=== PATIENT | male | born 1945 | race Caucasian/White ===

== ENCOUNTER 2016-11-28 02:04 | Emergency (ER) | payer MEDICARE ==
[~2016-11-28] VITALS: Ht 172.7 cm; Wt 65.8 kg
[~2016-11-28 02:04] MED LIST: BETH25TA GT; HYDR-3730 PO; NAPR-689 PO; SULF-222 PO
--- OUTSIDE RECORDS SUMMARY | 2016-11-28 02:10 | XMS REPORT | Continuity of Care Document ---
Author Author [facility] Organization [facility] Address Unknown Phone Unavailable Care Team Providers Care [employer] Boat [employer] Supervisor Name Role Phone PCP Unavailable Source Comments Some departments are not documenting in the electronic medical record. If you do not see the information that you expected, contact Release of Information in the Health Information Management department at [phone] for further assistance in locating additional records.[facility] Active Allergies and Adverse Reactions Not on File Current Medications Not on file Active Problems Not on file Social History Tobacco Use Types Packs/Day Years Used Date Never Assessed Plan of Care Health Maintenance Due Date Last Done Comments Hepatitis C Screening 1945 Physical (Comprehensive) 1953 Exam Pertussis Vaccine 1957 Tetanus Vaccine 1963 Colorectal Cancer 1996 Screening Shingles Vaccine 2006 Prevnar/Pneumovax (#1) 2011 Influenza Vaccine 07/29/2016 Results from Last 3 Months Not on file
[2016-11-28 02:31] LABS: BILIRUBIN,URINE NEGATIVE (NEGATIVE); KETONES,URINE 1+ (NEGATIVE); LEUKOCYTE ESTERASE ,URINE 2+ (NEGATIVE); NITRITE,URINE NEGATIVE (NEGATIVE); PH,URINE 7 (5-9); PROTEIN,URINE 3+ (NEGATIVE); UROBILINOGEN,URINE NORMAL (NORMAL)
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
[2016-11-28] MEDS ORDERED: NITR-65 PO (02:53)
[2016-11-28] MEDS ORDERED: NITROFURANTOIN 100 MG (MACROBID) CAPSULE PO ONE (03:00)
[2016-11-28] MEDS ORDERED: NITROFURANTOIN 50 MG (MACRODANTIN) CAP PO ONE (03:00)
[2016-11-28 03:15] VITALS: BP 125/74
== END 2016-11-28 03:15 | disposition home or self-care (01) ==
LOC: EDUNIT# 02:04 → ER 02:06
DX: T83.098A Other mechanical complication of other urinary catheter, initial encounter (principal); R31.9 Hematuria, unspecified; C61 Malignant neoplasm of prostate
CPT/HCPCS: 81000; 87088; 99283

== ENCOUNTER 2017-12-08 12:49 | Outpatient (RCR) | payer OTHER ==
[~2017-12-08 12:49] MED LIST changes: +NITR-65 PO
== END 2017-12-19 13:09 | disposition home or self-care (01) ==
PROVIDERS: ATTEND Family Medicine
DX: R26.9 Unspecified abnormalities of gait and mobility (principal)

== ENCOUNTER → 2017-12-15 | Outpatient (CLI) | payer MEDICARE ==
--- NOTE | 2017-12-15 09:48 | Diagnostic Imaging Report ---
INDICATION: Right groin pain TECHNIQUE: Real-time grayscale sonographic imaging and color vascular evaluation of both testicles was performed. CORRELATION STUDY: None FINDINGS: RIGHT testicle measures 3.8 x 2.7 x 2.6 cm. LEFT testicle measures 4.3 x 1.5 x 2.4 cm. The testicles appear normal in echogenicity. No focal testicular mass demonstrated. There is vascular flow to the testicles. There is a rather simple appearing epididymal head cyst on the left at 6 mm in size. Moderate right-sided hydrocele. Imaging of the soft tissues of the inguinal region demonstrates no definitive hernia defect. IMPRESSION: 1. Moderate right-sided hydrocele. Otherwise unremarkable scrotal ultrasound evaluation. Dictated by: Dictated on workstation # [id number]
== END ==
LOC: RAD 08:33
PROVIDERS: ATTEND Nurse Practitioner Family
DX: N43.3 Hydrocele, unspecified (principal)
CPT/HCPCS: 76870

== ENCOUNTER 2020-10-06 09:59 | Outpatient (RCR) | payer MEDICARE | END 2020-12-01 15:44 | disposition home or self-care (01) | PROVIDERS: ATTEND Urology | DX: C61 Malignant neoplasm of prostate (principal) ==

== ENCOUNTER 2022-10-16 15:43 | Emergency (ER) | payer MEDICARE, OTHER ==
[~2022-10-16] VITALS: Ht 172.7 cm; Wt 65.7 kg
[2022-10-16 15:49] VITALS: BP 124/70
--- NOTE | 2022-10-16 16:08 | ED Abdominal Pain ---
General Chief Complaint: Abdominal/GI Problems Stated Complaint: LOWER RIGHT ABD PAIN Source of Information: Patient Exam Limitations: No Limitations History of Present Illness Date Seen by Provider: Oct 16, 2022 Time Seen by Provider: 15:50 Initial Comments Patient is a 77-year-old male who presents to the emergency room with a concern for right lower quadrant hernia. He has had previous inguinal hernia repair by Dr. JEAN. He states over the last week or so he has noted a small "bulge" in his right lower quadrant. He denies any significant pain. He occasionally feels a "twinge" when he moves around. He is not nauseous or vomiting. He has a normal appetite. Normal bowel movements. No urinary difficulties but does self caths routinely secondary to chronic bladder problems. No fevers or chills. No leg pain, numbness weakness or tingling. No back pain. [facility] that he should probably come to the emergency room and "have it looked at". He is asymptomatic completely. Exam is pertinent for a slight protuberance in the right lower quadrant consistent with ventral abdominal hernia of the right lower quadrant. No overlying erythema. Nontender. Soft and reducible. No discrete violation of the peritoneum is felt through which to reduce the hernia. All other review of systems reviewed and negative except as stated. Timing/Duration: 1 Week Severity/Quality: Mild Location: RLQ Radiation: No Radiation Associated Symptoms: Denies Symptoms Allergies and Home Medications Allergies Coded Allergies: No Known Drug Allergies (Unverified , 10/04/14) Patient Home Medication List Home Medication List Reviewed: Yes Nitrofurantoin Monohyd/M-Cryst (Macrobid 100 mg Capsule) 100 Mg Capsule, 1 TAB PO BID Prescribed by: ROBBI REAL on 11/28/16 0253 Sulfamethoxazole/Trimethoprim (Sulfamethoxazole-Tmp Ds Tablet) 1 Each Tablet, 1 TAB PO UD, (Reported) Entered as Reported by: FRANCA RODRIGUES on 08/08/16 1968 Review of Systems Review of Systems Constitutional: no symptoms reported, see HPI EENTM: No Symptoms Reported Respiratory: No Symptoms Reported Cardiovascular: No Symptoms Reported Gastrointestinal: Other (swollen area right LQ) Genitourinary: No Symptoms Reported Musculoskeletal: no symptoms reported Skin: no symptoms reported Psychiatric/Neurological: No Symptoms Reported All Other Systems Reviewed Negative Unless Noted: Yes Past Ionzpux-Rplkfa-Mwfksf Hx Patient Social History Tobacco Use?: No Use of E-Cig and/or Vaping dev: No Substance use?: No Alcohol Use?: No Pt feels they are or have been: No Seasonal Allergies Seasonal Allergies: Yes Past Medical History Reproductive Disorders: Yes (prostate cancer, urinary obstruction) Prostate Problems Arthritis Prostate Anxiety, PTSD Adverse Reaction/Blood Tranf: No Physical Exam Vital Signs Capillary Refill : Height/Weight/BMI Height: 5'8" Weight: 145lbs. oz. 65.942972sb; BMI Method:Stated General Appearance: WD/WN, no apparent distress Respiratory: no respiratory distress, no accessory muscle use Cardiovascular: regular rate, rhythm Gastrointestinal: normal bowel sounds, non tender, soft, other (small amount of swelling RLQ in the anterior abdominal wall. Soft and NT. BS are positive. No discrete defect felt in the abdominal wall. femoral pulses intact bilaterally. 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 Exam is consistent with direct abdominal hernia in the right lower quadrant. The area is soft and reducible. No overlying erythema. Nontender to palpation. Femoral pulses are intact. His vital signs are stable. He is completely asymptomatic. Recommended that the patient follow-up with Dr. JEAN who is done an inguinal hernia repair on him in the past. No clinical or objective findings to warrant basic laboratory studies or urgent ultrasound/CT. Consideration given to bowel obstruction, acute appendicitis, cellulitis, incarcerated hernia. Physical exam nonconcerning for any of these in the differential I will schedule him for an ultrasound of the area for the beginning of the week. Patient is given return precautions. He verbalized understanding. All questions are sought and answered. Patient is stable for discharge Departure Impression Primary Impression: Hernia of anterior abdominal wall Disposition: 01 HOME, SELF-CARE Condition: Stable Departure-Patient Inst. Decision time for Depature: 16:07 Referrals: BINH HEWITT MD (PCP) Primary Care Physician LEANNA JEAN MD Patient Instructions: Abdominal Hernia (DC) Add. Discharge Instructions: Avoid any lifting over 15 pounds. Try not to strain with bowel movements. Take stool softeners daily so that you do not strain. Please call Dr. JEAN's office on Tuesday for a follow-up appointment after your ultrasound is completed. If you develop severe abdominal pain especially with nausea and vomiting, blood in your stools or fever please return to the emergency department for reevaluation. Copy Copies To 1: LEANNA JEAN MD, KATHRYN M MD Oct 16, 2022 16:08
== END 2022-10-16 16:23 | disposition home or self-care (01) ==
LOC: EDUNIT# 15:43 → ER 15:45
DX: K43.9 Ventral hernia without obstruction or gangrene (principal); Z98.890 Other specified postprocedural states
CPT/HCPCS: 99281

== ENCOUNTER → 2022-10-18 | Outpatient (CLI) | payer MEDICARE ==
--- NOTE | 2022-10-18 09:52 | Diagnostic Imaging Report ---
INDICATION: Right lower quadrant abdominal pain. History of previous right inguinal hernia repair. TECHNIQUE: Multiple Real-time grayscale sonographic images of the abdomen. CORRELATION STUDY: None. FINDINGS: LIVER: Normal echotexture within the visualized portions of the liver. There is normal, hepatopetal direction of flow within the main portal vein. Liver length is 16.5 cm. GALLBLADDER: No shadowing gallstones or pericholecystic fluid. COMMON BILE DUCT: Nondilated at 0.5 cm. PANCREAS: Limited in visualization. The visualized portions appearing unremarkable. SPLEEN: Unremarkable at 9.3 x 3.6 x 4.5 cm. ABDOMINAL AORTA: Unremarkable. INFERIOR VENA CAVA: Limited in visualization. RIGHT KIDNEY: 11.1 x 5.0 x 4.9 cm. Unremarkable. LEFT KIDNEY: 11.1 x 4.8 x 5.2 cm. Unremarkable. OTHER: No significant abdominal ascites. Imaging of the right inguinal region demonstrates a contour deformity which does become more prominent with Valsalva. Additionally, there is suggestion of some peristalsis, concerning for hernia. This region measures approximately 5.2 x 4.9 x 3.5 cm. IMPRESSION: 1. Imaging of the right inguinal region raises concern for potential hernia defect which may include bowel. If further imaging evaluation is desired, CT imaging would be recommended. 2. The remainder of the abdominal ultrasound study is otherwise unremarkable. Dictated by: Dictated on workstation # [id number]
== END ==
LOC: RAD 09:00
PROVIDERS: ATTEND Emergency Medicine
DX: R10.31 Right lower quadrant pain (principal); Z98.890 Other specified postprocedural states
CPT/HCPCS: 76700

== ENCOUNTER 2023-03-11 05:41 | Outpatient (CLI) | payer MEDICARE ==
[~2023-03-11] VITALS: Ht 172.7 cm; Wt 69.1 kg
[2023-03-11] MEDS ORDERED: [UNRECOGNIZED DRUG - OTHER] PO (12:20)
[2023-03-11] MEDS ORDERED: LECI400C PO (12:20)
[2023-03-11] MEDS ORDERED: CYAN250014 PO (12:20)
[2023-03-11] MEDS ORDERED: ASHW300C2 PO (12:20)
[2023-03-11] MEDS ORDERED: ZINC50TA61 PO (12:20)
[2023-03-11] MEDS ORDERED: GELA600C5 PO (12:20)
[2023-03-11] MEDS ORDERED: BEET ROOT PO (12:20)
[2023-03-11] MEDS ORDERED: LUTE20CA2 PO (12:20)
[2023-03-11] MEDS ORDERED: LACT-242 PO (12:20)
[2023-03-11] MEDS ORDERED: CRAN500T4 PO (12:20)
[2023-03-11] MEDS ORDERED: MULT-1104 PO (12:20)
[2023-03-11] MEDS ORDERED: ACAI500C9 PO (12:20)
[2023-03-11] MEDS ORDERED: GINK120C PO (12:20)
[2023-03-11] MEDS ORDERED: [UNRECOGNIZED DRUG - CODE] PO (12:20)
[2023-03-11] MEDS ORDERED: IRON18TA PO (12:20)
[2023-03-11] MEDS ORDERED: SIME125T50 PO (12:20)
[2023-03-11] MEDS ORDERED: HORSE TAIL PO (12:20)
[2023-03-11] MEDS ORDERED: [UNRECOGNIZED DRUG - CODE] PO (12:20)
[2023-03-11] MEDS ORDERED: CHOL125C7 PO (12:20)
[2023-03-11] MEDS ORDERED: NAPR500T8 PO (12:20)
[2023-03-11] MEDS ORDERED: GLUC1TAB29 PO (12:20)
[2023-03-11] MEDS ORDERED: CALC1CAP9 PO (12:20)
[2023-03-11] MEDS ORDERED: OXYB10TA6 PO (12:20)
== END 2023-03-11 12:51 | disposition home or self-care (01) ==
LOC: PREOP 05:41
PROVIDERS: ATTEND Surgery
DX: Z01.818 Encounter for other preprocedural examination (principal)

== ENCOUNTER 2023-03-17 09:48 | Day surgery (SDC) | payer MEDICARE, OTHER ==
--- NOTE | 2023-03-10 08:06 | HISTORY AND PHYSICAL ---
DATE OF SERVICE: 03/17/2023 HISTORY OF PRESENT ILLNESS: The patient is a 77-year-old male known to us. We had initially seen him in September 2014 for right inguinal hernia and underwent laparoscopic repair on 10/11. He was then seen 10/19 and stated that he felt a small bulge in the right inguinal region and he wanted to medically manage that one. He was seen more recently due to the increased pain and swelling in the right inguinal region. He was again seen and was found to have a reducible right inguinal hernia, which was tender to palpation. He is otherwise eating well and having normal bowel movements. PAST MEDICAL HISTORY: History of prostate cancer, urinary incontinence, degenerative joint disease. PAST SURGERIES: Laparoscopic right inguinal hernia repair 2013, left femur ORIF 1966, suprapubic catheter placement 07/2017. Transurethral resection of prostate. ALLERGIES: NO KNOWN DRUG ALLERGIES. MEDICATIONS: Naproxen p.r.n. SOCIAL HISTORY: Previous smoke, quit in 1989, 20 pack years, negative alcohol. FAMILY HISTORY: Father with history of lung cancer. VITAL SIGNS: Currently 152 pounds, blood pressure 110/60 at 5 feet 8 inches. REVIEW OF SYSTEMS: A well-nourished male in no acute distress. He is not experiencing shortness of breath or difficulty breathing. No chest pain, palpitations, diaphoresis. No nausea or vomiting. No diarrhea or constipation. No fever, chills, no recent inadvertent weight loss. All other review of systems negative. PHYSICAL EXAMINATION: CHEST: Clear. Good breath sounds bilaterally. HEART: Regular. No murmurs. EXTREMITIES: No lower extremity edema. Negative Homans sign. HEENT: No scleral icterus. No cervical lymphadenopathy. ABDOMEN: Soft, nondistended. There is pain in the right inguinal region upon deep palpation, consistent with right recurrent inguinal hernia. SKIN: Warm, dry. ASSESSMENT AND PLAN: A 77-year-old male with recurrent right inguinal hernia. The natural history of hernias were explained to the patient including the risk of incarceration and strangulation and he is in full understanding of this and would like to proceed with laparoscopic recurrent right inguinal hernia repair with mesh, which we will schedule. Job ID: [id number] DocumentID: [id number] Dictated Date: 03/08/2023 15:10:16 Retail Management Keyholder Date: 03/08/2023 16:09:00 Dictated By: LEANNA JEAN MD
[2023-03-17] VITALS (10 sets, daily range): BP systolic 113–126; BP diastolic 56–90
[~2023-03-17] VITALS: Ht 172.7 cm; Wt 69.1 kg
[~2023-03-17 09:48] MED LIST changes: +ACAI500C9 PO; +ASHW300C2 PO; +BEET ROOT PO; +CALC1CAP9 PO; +CHOL125C7 PO; +CRAN500T4 PO; +CYAN250014 PO; +GELA600C5 PO; +GINK120C PO; +GLUC1TAB29 PO; +HORSE TAIL PO; +IRON18TA PO; +LACT-242 PO; +LECI400C PO; +LUTE20CA2 PO; +MULT-1104 PO; +NAPR500T8 PO; +OXYB10TA6 PO; +SIME125T50 PO; +ZINC50TA61 PO; +[UNRECOGNIZED DRUG - CODE] PO; +[UNRECOGNIZED DRUG - CODE] PO; +[UNRECOGNIZED DRUG - OTHER] PO
--- NOTE | 2023-03-17 10:09 | Progress Note-Pre Operative ---
Pre-Operative Progress Note Date H&P Reviewed: Mar 17, 2023 Time H&P Reviewed: 10:05 History & Physical: H&P Reviewed, Patient Examed, No changes noted Pre-Operative Diagnosis: Recurrent Right inguinal hernia JOSIANE HODGSON BIOPSYCHOLOGIST Mar 17, 2023 10:09
[2023-03-17] MEDS ORDERED: HYDR-3817 PO (10:10)
--- NOTE | 2023-03-17 10:11 | Discharge Inst-Surgical ---
D/C Lap Instructions-KIDO Reconcile Patient Problems Problems Reviewed?: Yes New, Converted, or Re-Newed RX: Other Follow Up Appt in 2 weeks Activity as tolerated No driving for 24 hours No driving while on pain medications Incentive Spirometry use every 2 hours while awake Regular Diet Symptoms to Report: Fever over 101 degree F, Nausea/Vomiting Infection Signs and Symptoms to report: Increased redness, Foul odor of wound, Increased drainage Bathing instructions: May shower Operative Area Clean/Dry; Keep incision clean/dry If any problems/questions: Contact your physician or go to Emergency Room JOSIANE HODGSON UTILITY TECHNICIAN Mar 17, 2023 10:11
[2023-03-17] MEDS ORDERED: HYDROcodone/APAP 5 MG/325 MG (LORTAB) TAB PO ONE (10:15)
[2023-03-17] MEDS ORDERED: morphine INJ 10 MG/ML 1ML (SYR OR VIAL) IVP PRN (10:15)
[2023-03-17] MEDS ORDERED: LACTATED RINGERS 1,000 ML IV PRN (10:15)
[2023-03-17] MEDS ORDERED: ONDANSETRON 4 MG/2 ML (SDV) Z0FRAN IVP PRN ×2 (10:15→12:15)
[2023-03-17] MEDS ORDERED: ceFAZolin INJECTION 2,000 MG in NS (IVPB) 50 ML IV ONE (10:15)
[2023-03-17] MEDS ORDERED: ACETAMINOPHEN 325 MG TABLET PO PRN (10:15)
[2023-03-17] MEDS ORDERED: ONDANSETRON 4 MG/2 ML (SDV) Z0FRAN ONE (10:16)
[2023-03-17] MEDS ORDERED: GLYCOPYRROLATE 0.2 MG/ML (ROBINUL) 2 ML VIAL ONE (10:16)
[2023-03-17] MEDS ORDERED: NEOSTIGMINE (BLOXIVERZ ) 1 MG/1ML 10 ML VIAL ONE (10:16)
[2023-03-17] MEDS ORDERED: fentaNYL INJ 100 MCG/2 ML AMP ONE (10:16)
[2023-03-17] MEDS ORDERED: LIDOCAINE PF 2% 5 ML (XYLOCAINE) VIAL ONE (10:16)
[2023-03-17] MEDS ORDERED: ROCURONIUM 50 MG/5 ML (ZEMURON) VIAL IV ONE (10:16)
[2023-03-17] MEDS ORDERED: proPOfol 200 MG/20 ML (DIPRIVAN) VIAL IV ONE (10:16)
[2023-03-17] MEDS ORDERED: BUP/EPI 0.5% 1:200,000 (SENSORCAINE) 30 ML VIAL ONE (10:38)
[2023-03-17] MEDS ORDERED: SEVOFLURANE (ULTANE) 15 ML INHAL SOLN ONE (11:54)
--- NOTE | 2023-03-17 12:00 | Progress Note-Post Operative ---
Post-Operative Progess Note Surgeon (s)/Sow Farm Manager (s) Surgeon LEANNA JEAN MD Sow Farm Manager: juju SMITH Pre-Operative Diagnosis Recurrent Right inguinal hernia Post-Operative Diagnosis same, direct ing hernia Procedure & Operative Findings Date of Procedure 03/17/23 Procedure Performed/Findings laparoscopic right recurrent ingunal hernia repair with mesh. Anesthesia Type get Estimated Blood Loss Estimated blood loss (mL): minimal Specimens/Packing Specimens Removed none LEANNA JEAN MD Mar 17, 2023 12:00
[2023-03-17] MEDS ORDERED: morphine INJ 10 MG/ML 1ML (SYR OR VIAL) IVP ONE (12:15)
--- NOTE | 2023-03-17 14:16 | Anesthesia-General Post-Op ---
General Patient Condition Mental Status/LOC: Same as Preop Cardiovascular: Satisfactory Nausea/Vomiting: Absent Respiratory: Satisfactory Pain: Controlled Complications: Absent Post Op Complications Complications None Follow Up Care/Instructions Patient Instructions None needed. Anesthesia/Patient Condition Patient Condition Patient is doing well, no complaints, stable vital signs, no apparent adverse anesthesia problems. No complications reported per nursing. SHRUTI HUGGINS CRNA Mar 17, 2023 14:16
--- NOTE | 2023-03-17 20:21 | OPERATIVE REPORT ---
DATE OF SERVICE: 03/17/2023 ATTENDING PRIMARY CARE PHYSICIAN: Dr. Regan Potts. PREOPERATIVE DIAGNOSIS: Recurrent reducible right inguinal hernia. POSTOPERATIVE DIAGNOSIS: Reducible right direct inguinal hernia. PROCEDURE: Laparoscopic repair of right recurrent inguinal hernia with mesh. SURGEON: Leanna Jean MD CHAIRMAN AND CEO: Jaiden Pandey APRN ANESTHESIA: General endotracheal. ESTIMATED BLOOD LOSS: Minimal. FINDINGS: Reducible right direct inguinal hernia. DISPOSITION: The patient tolerated the procedure well. INDICATIONS: The patient is a 77-year-old male known to us. We had initially seen him in September 2014 for a right inguinal hernia, which was symptomatic and underwent a laparoscopic repair 09/2014. He was then seen on 09/2022 and stated that he felt a small bulge within the inguinal region; however, he stated that this was not too symptomatic and wanted to medically manage the hernia. He was seen more recently due to increased pain and swelling of the right inguinal region. Again, he was found to have recurrent reducible right inguinal hernia. He is otherwise doing well, tolerating a regular diet and having normal bowel movements. DESCRIPTION OF PROCEDURE: The patient was brought to the operating room, laid supine on the table. After adequate IV pain and sedative medications and general endotracheal intubation, the abdomen was prepped and draped in standard surgical fashion. A 0.5% Marcaine with epinephrine was then used to anesthetize the overlying skin in the infraumbilical region. A crescent-shaped skin incision was then made using a #15 blade. The fascia was then dissected using a hemostat. The abdominal wall was then retracted anteriorly and a Veress needle inserted with a low opening pressure of 0 mmHg. The abdomen was then insufflated to 15 mmHg pressure. The Veress needle removed and a 10 mm trocar placed followed by a 10 mm 45-degree angle laparoscope visualized the peritoneal cavity. A 4-quadrant abdominal exploration was performed. There was a recurrent right direct inguinal hernia. There appeared to be a small left direct inguinal hernia component as well. However, this was not symptomatic. The remainder of the small bowel and colon appeared normal. Under direct visualization, we then proceeded to place bilateral 5 mm ports under direct visualization after the skin and peritoneal lining were anesthetized using 0.5% Marcaine with epinephrine and transverse skin incision was made using a #15 blade. The patient was then placed in a Trendelenburg position. We then proceeded to dissect the peritoneal lining next to the previous mesh using blunt dissection as well as the Sonicision. We proceeded medially until Jeison's ligament was reached as well as went medially beyond to encompass to dissect out the entirety of the direct inguinal hernia component. We then proceeded with inferior dissection where the previous mesh was then tacked with visualization of good hemostasis. Good hemostasis was observed. A medium size 3DMax polypropylene mesh was then placed into the defect and then tacked to Jeison's ligament medially and to the inguinal ligament laterally. The medial portion covered the direct inguinal hernia component. The peritoneal lining was then placed over the mesh and a few absorbable tacks placed to hold this in place with visualization of good hemostasis. Good hemostasis was observed. The 10 mm port site fascia and peritoneum were then closed under direct visualization using a Eugenio-Max device and 0 Vicryl suture. The abdomen was desufflated and the remaining ports removed. All skin incisions were closed using 4-0 Monocryl running subcuticular sutures. Wounds were then cleaned and covered with Dermabond. The patient tolerated the procedure well. We will start IV normal pain medication as well as a clear liquid diet. Once he is tolerating clears, has good pain control with oral pain medications, ambulating well, we will discharge him home where he will be instructed to do no heavy lifting or exertion for the next 6 weeks. Job ID: [id number] DocumentID: [id number] Dictated Date: 03/17/2023 13:10:57 Visual Associate Date: 03/17/2023 20:19:00 Dictated By: LEANNA JEAN MD
== END 2023-03-17 14:12 | disposition home or self-care (01) ==
LOC: SDC 09:48
PROVIDERS: ATTEND Surgery
DX: K40.91 Unilateral inguinal hernia, without obstruction or gangrene, recurrent (principal); Z87.891 Personal history of nicotine dependence
CPT/HCPCS: 87081

== ENCOUNTER 2023-03-19 10:15 | Emergency (ER) | payer OTHER ==
[~2023-03-19 10:15] MED LIST changes: +HYDR-3817 PO
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
[2023-03-19] MEDS ORDERED: METO5TAB75 PO (11:22)
[2023-03-19] MEDS ORDERED: ONDANSETRON 4 MG (ZOFRAN) ORAL DISSOLVE TAB PO ONE (11:30)
[2023-03-19] MEDS ORDERED: METOCLOPRAMIDE INJ 10 MG/2 ML (REGLAN) IM ONE (11:30)
[2023-03-19 11:34] VITALS: BP 129/81
== END 2023-03-19 11:48 | disposition home or self-care (01) ==
LOC: EDUNIT# 10:15 → ER 10:19
DX: K59.00 Constipation, unspecified (principal); Z98.890 Other specified postprocedural states
CPT/HCPCS: 99283

== ENCOUNTER 2023-03-21 13:09 | Emergency (ER) | payer OTHER ==
[~2023-03-21] VITALS: Ht 172.7 cm; Wt 65.7 kg
[~2023-03-21 13:09] MED LIST changes: +METO5TAB75 PO
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
[2023-03-21] MEDS ORDERED: MINERAL OIL ENEMA 133 ML BTL PR ONE (13:45)
[2023-03-21 14:47] VITALS: BP 138/73
== END 2023-03-21 14:51 | disposition home or self-care (01) ==
LOC: EDUNIT# 13:09 → ER 13:11
DX: K59.00 Constipation, unspecified (principal); Z98.890 Other specified postprocedural states
CPT/HCPCS: 99283